=== PATIENT | male | born 1945 | race Caucasian/White ===

== ENCOUNTER 2016-07-04 17:12 | Inpatient (IN) | payer MEDICARE, OTHER ==
--- NOTE | ~2016-07-04 | EGD ---
EGD REPORT [facility] [address] [place]. [address] NAME: HELEN MORATAYA : [birth year] STATUS : ADM IN PAT#: [id number] AGE: 70 ADM/REG DATE : 07/04/16 MR#: [id number] REPORT SERV DATE: 07/06/16 DICTATED BY: CHRIS BARAJAS DATE: 07/06/16 REPORT STATUS : Draft [facility]ANSCRIBED BY: [facility] DATE: 07/06/16 Endoscopy Center Patient Name: Helen Morataya Date of : 1945 Attending MD: CHRIS BARAJAS MD Procedure Date No Time: 07/06/2016 Procedure: Colonoscopy Indications: Gastrointestinal bleeding Referring MD: KELVIN NEVILLE Medicines: Monitored Anesthesia Care Complications: No immediate complications. Estimated blood loss: Minimal. Procedure: After I obtained informed consent, the scope was passed under direct vision. Throughout the procedure, the patient's blood pressure, pulse, and oxygen saturations were monitored continuously. The CF [id number] was introduced through the anus and advanced to the cecum, identified by appendiceal orifice and ileocecal valve. The colonoscopy was performed without difficulty. The patient tolerated the procedure well. The quality of the bowel preparation was good in most of the colon, but was only fair in the cecum and ascending colon and not adequate for screening purposes. Findings: The perianal and digital rectal examinations were normal. Pertinent negatives include normal sphincter tone and no palpable rectal lesions. A sessile polyp was found in the ascending colon. The polyp was 4 mm in size. The polyp was removed with a cold biopsy forceps. Resection and retrieval were complete. Estimated blood loss was minimal. A sessile polyp was found in the sigmoid colon. The polyp was 3 mm in size. The polyp was removed with a cold biopsy forceps. Resection and retrieval were complete. Estimated blood loss was minimal. Non-bleeding internal hemorrhoids were found during retroflexion and were medium-sized. There is no endoscopic evidence of bleeding in the entire colon. The exam was otherwise without abnormality. Impression: - One 4 mm polyp in the ascending colon. Resected and retrieved. - One 3 mm polyp in the sigmoid colon. Resected and retrieved. - Non-bleeding internal hemorrhoids. - The examination was otherwise normal. EGD REPORT [address] [address] NAME: HELEN MORATAYA : [birth year] STATUS : ADM IN [facility]#: [id number] AGE: 70 ADM/REG DATE : 07/04/16 MR#: [id number] REPORT SERV DATE: 07/06/16 DICTATED BY: CHRIS BARAJAS DATE: 07/06/16 REPORT STATUS : Draft TRANSCRIBED BY: [employer] DATE: 07/06/16 Recommendation: - Return patient to hospital bender for ongoing care. - Await pathology results. - Repeat colonoscopy in 6-12 months because polyps were seen on examination and prep was inadequate for screening purposes. Procedure Code(s): --- Professional --- 06127, Colonoscopy, flexible, proximal to splenic flexure; with biopsy, single or multiple Diagnosis Code(s): --- Professional --- D12.5, Benign neoplasm of sigmoid colon D12.2, Benign neoplasm of ascending colon K64.8, Other hemorrhoids K92.2, Gastrointestinal hemorrhage, unspecified CPT copyright 2013 [employer]. All rights reserved. The codes documented in this report are preliminary and upon pre coder review may be revised to meet current compliance requirements. Chris Barajas MD CHRIS BARAJAS MD 07/06/2016 10:46 AM This report has been signed electronically. Number of Addenda: 0 Note Initiated On: 07/06/2016 9:39 AM Scope Withdrawal Time 0 hours 18 minutes 25 seconds [address] [place] [address]
--- NOTE | ~2016-07-04 | DS ---
Discharge Summary [facility] [address] [facility] [place]. [address] NAME: HELEN CUMMINS : [birth year] STATUS : DIS IN PAT#: [id number] AGE: 70 ADM/REG DATE : 07/04/16 MR#: [id number] REPORT SERV DATE: 07/07/16 DICTATED BY: YAYA CASANOVA DATE: 07/06/16 REPORT STATUS : Draft TRANSCRIBED BY: MODL DATE: 07/06/16 ADMISSION DATE: 07/04/2016 DISCHARGE DATE: 07/06/2016 DISCHARGE DIAGNOSES: 1. Acute upper gastrointestinal bleed, status post esophagogastroduodenoscopy and colonoscopy. 2. Coagulopathy secondary to Coumadin use. 3. Acute blood loss anemia. 4. Chronic persistent atrial fibrillation. 5. Chronic kidney disease, stage III. CONSULT: GI. PROCEDURES: EGD and colonoscopy performed by Dr. Erazo on 07/06/2016 revealed no acute source of bleeding. The patient had Perez's esophagus as well as mild duodenitis. HOSPITAL COURSE: This is a 70-year-old gentleman who was admitted to the hospital with acute upper GI bleed in the setting of anticoagulation with Coumadin. For details please refer to H and P by Dr. Ferrer. In summary, the patient was admitted and was given FFP to reverse the coagulopathy as well as 2 packs of packed red blood cells as the patient was quite symptomatic. The patient was also given IV fluid resuscitation along with a Protonix drip. The patient's hemoglobin on presentation was 6.1 and after 2 units patient's hemoglobin improved to 7.8, and on the day of discharge, the patient's hemoglobin is up to 8.4. The patient has also symptomatically improved and felt back at baseline. The patient had an EGD and colonoscopy done which was quite benign with only findings of Perez's esophagus and mild duodenitis without any active source of bleeding. The patient was actually cleared by GI to resume Coumadin. The patient is now being discharged home with close outpatient followup instructions. DISPOSITION: Home. DISCHARGE MEDICATIONS: Protonix 40 mg p.o. daily. FOLLOWUP: 1. Please follow up with PCP in the next one to two weeks. 2. Please follow up with Dr. Chavez, his room maid in the next two weeks. A total of 25 minutes spent in coordinating this patient's discharge today. [facility]/SONDRA aYya Casanova MD Discharge Summary [facility] [address] [place] [address] NAME: HELEN CUMMINS : [birth year] STATUS : DIS IN PAT#: [id number] AGE: 70 ADM/REG DATE : 07/04/16 MR#: [id number] REPORT SERV DATE: 07/07/16 DICTATED BY: YAYA CASANOVA DATE: 07/06/16 REPORT STATUS : Draft TRANSCRIBED BY: SONDRA DATE: 07/06/16 / [id number] CC: MD Terrance Williamson M.D.
--- NOTE | ~2016-07-04 | EGD ---
EGD REPORT [facility] [address] [address] NAME: HELEN MORATAYA : [birth year] STATUS : ADM IN PAT#: [id number] AGE: 70 ADM/REG DATE : 07/04/16 MR#: [id number] REPORT SERV DATE: 07/06/16 DICTATED BY: CHRIS BARAJAS DATE: 07/06/16 REPORT STATUS : Draft [facility]ANSCRIBED BY: [facility] DATE: 07/06/16 Endoscopy Center Patient Name: Helen Morataya Date of : 1945 Attending MD: CHRIS BARAJAS MD Procedure Date No Time: 07/06/2016 Procedure: Upper GI endoscopy Indications: Melena, Suspected upper gastrointestinal bleeding Referring MD: KELVIN NEVILLE Medicines: Monitored Anesthesia Care Complications: No immediate complications. Estimated blood loss: Minimal. Procedure: After obtaining informed consent, the endoscope was passed under direct vision. Throughout the procedure, the patient's blood pressure, pulse, and oxygen saturations were monitored continuously. The GIF [id number] was introduced through the mouth, and advanced to the second part of duodenum. The upper GI endoscopy was accomplished without difficulty. The patient tolerated the procedure well. Findings: Two tongues of salmon-colored mucosa were present at 39 cm. No other visible abnormalities were present. The maximum longitudinal extent of these esophageal mucosal changes was 1 cm in length. Biopsies were taken with a cold forceps for histology. Estimated blood loss was minimal. A small hiatus hernia was present. Patchy mild inflammation characterized by congestion (edema) and erythema was found in the duodenal bulb. The exam was otherwise without abnormality. Impression: - Hampton-colored mucosa suspicious for short-segment Perez's esophagus. Biopsied. - Hiatus hernia. - Duodenitis. - The examination was otherwise normal. No souce of bleeding seen. Recommendation: - Use Protonix (pantoprazole) 40 mg PO daily. - Perform a colonoscopy today. Procedure Code(s): --- Professional --- 88817, Esophagogastroduodenoscopy, flexible, transoral; with biopsy, single or multiple EGD REPORT [facility] [address] [facility] [place]. [address] NAME: HELEN MORATAYA : [birth year] STATUS : ADM IN [facility]#: [id number] AGE: 70 ADM/REG DATE : 07/04/16 MR#: [id number] REPORT SERV DATE: 07/06/16 DICTATED BY: CHRIS BARAJAS DATE: 07/06/16 REPORT STATUS : Draft TRANSCRIBED BY: [employer] DATE: 07/06/16 Diagnosis Code(s): --- Professional --- K22.9, Disease of esophagus, unspecified K44.9, Diaphragmatic hernia without obstruction or gangrene K29.80, Duodenitis without bleeding K92.1, Melena CPT copyright 2013 [employer]. All rights reserved. The codes documented in this report are preliminary and upon chlorinator operator review may be revised to meet current compliance requirements. Chris Barajas MD CHRIS BARAJAS MD 07/06/2016 10:02 AM This report has been signed electronically. Number of Addenda: 0 Note Initiated On: 07/06/2016 9:40 AM Scope Withdrawal Time 0 hours 0 minutes 0 seconds [address] [facility] [place] [address]
--- NOTE | ~2016-07-04 | HP ---
History And Physical [place] [id number] [place]. [address] NAME: HELEN CUMMINS : [birth year] STATUS : ADM IN [facility]#: [id number] AGE: 70 ADM/REG DATE : 07/04/16 MR#: [id number] REPORT SERV DATE: 07/05/16 DICTATED BY: SOLE LOVETT DATE: 07/04/16 REPORT STATUS : Draft TRANSCRIBED BY: MODMindy DATE: 07/04/16 DATE OF ADMISSION: 07/04/2016 CHIEF COMPLAINT: A 70-year-old male, presenting with melena and acute blood loss anemia. HISTORY OF PRESENTING ILLNESS: The patient's history was obtained through careful interview with the patient, , and son, coupled with [facility] and [facility] medical records. The patient earlier in 2016 was diagnosed with new onset atrial fibrillation. He was being evaluated for initiation of Coumadin and for risk of stroke and was found to have significant carotid disease as well and in April, had to undergo a left carotid endarterectomy. Also this year, the patient has been started on new prescription of Coumadin and for a period of time was on amiodarone as well and also had to have cardioversion of symptomatic atrial fibrillation in May 2016. It is in the context of all these vascular and cardiac issues that the patient has began to feel increasingly ill over these last several months. At one point, (after he had started amiodarone), he states his blood pressure was "bottoming out" with systolic blood pressures in the 90s and diastolic blood pressures in the 50s. He stopped his amiodarone with some improvement in his symptoms, but then over this last month, has continued to have lightheadedness and severe fatigue with loss of energy. Over the last few weeks then, he has also developed extreme dyspnea on exertion, occasional dizziness, and lightheadedness again with orthostatics symptoms. Over the last two weeks, he has noticed tar black discoloration of the stool. No bright red blood per rectum. No nausea or vomiting. Although sometimes he feels queasy with exertion. No reflux symptoms. About five or six days ago, he went in for routine INR check. He also had blood checked at that time, although he had an INR of 2.6 and a low hemoglobin, but for various reasons, the blood result was not communicated to his primary care physician until his day of admission and because of the low hemoglobin, the patient was instructed to come to the emergency department. He does not use any nonsteroidal antiinflammatory drugs. He is on an aspirin in addition to his Coumadin. There has been no chest pain. He has had occasional cramping discomfort in his thighs, exacerbated by activity. Few weeks ago, he stopped taking his chronic Zocor for this and he has had some improvement in it and this pain, he describes as a 6/10 severity. He also complained of feeling palpitations and increased heart rate with activity. REVIEW OF SYSTEMS: History And Physical [address] [address] NAME: HELEN CUMMINS : [birth year] STATUS : ADM IN [facility]#: [id number] AGE: 70 ADM/REG DATE : 07/04/16 MR#: [id number] REPORT SERV DATE: 07/05/16 DICTATED BY: SOLE LOVETT DATE: 07/04/16 REPORT STATUS : Draft TRANSCRIBED BY: SONDRA DATE: 07/04/16 Otherwise, a 14-point review of systems was obtained and was negative. PAST MEDICAL HISTORY: 1. Atrial fibrillation, just diagnosed earlier in 2016, on Coumadin. 2. Colon polyps, seen by Dr. Ulises Chavez. 3. Chronic kidney disease, stage III with a baseline creatinine of about 1.3 to 1.5. 4. Nephrolithiasis. 5. Coronary artery disease status post CABG, 2006. 6. Gout. 7. No lung disease history. PAST SURGICAL HISTORY: 1. CABG, 2006. 2. Left carotid endarterectomy, April 2016. 3. Knee surgery. 4. Prostate biopsy. 5. Right eye melanoma, 1998. ALLERGIES: NO KNOWN DRUG ALLERGIES. SOCIAL HISTORY: He is , has two sons, a daughter, five grandchildren. He has never been a smoker. Does not drink any alcohol. 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 FAMILY HISTORY: He is only child. He knows his mother at 52 years of age, but of unknown cause. His father also at a relatively young age of unknown cause and he cannot identify any clear familial pattern of disease. CURRENT MEDICATIONS: Include allopurinol 300 mg daily, aspirin 81 mg daily, atenolol 50 mg daily, Lasix 20 mg daily, Restoril 15 mg at bedtime, Coumadin alternating doses of 5 and 7.5 mg every other day. PHYSICAL EXAMINATION: VITAL SIGNS: Temperature 96.6, pulse 93, blood pressure 135/73, respiratory rate 14, O2 saturation 98% on room air. GENERAL: A very pleasant cooperative male. There is no evidence of acute distress at this time. HEENT: Pupils equal, round, and reactive to light. The patient does have conjunctival pallor, but no scleral icterus. Nares are patent. Oropharynx is clear of obstruction. Moist mucous membranes. No intraoral lesions. NECK: Trachea midline. No thyromegaly. LYMPH: No cervical lymphadenopathy. No supraclavicular lymphadenopathy. RESPIRATORY: Clear to auscultation at bases. No wheezes, rales, or rhonchi. Normal respiratory effort. CARDIOVASCULAR: Irregularly irregular. No murmurs, rubs, or gallops. No extremity edema is appreciated. History And Physical [address] [address] NAME: HELEN CUMMINS : [birth year] STATUS : ADM IN [facility]#: [id number] AGE: 70 ADM/REG DATE : 07/04/16 MR#: [id number] REPORT SERV DATE: 07/05/16 DICTATED BY: SOLE LOVETT DATE: 07/04/16 REPORT STATUS : Draft TRANSCRIBED BY: SONDRA DATE: 07/04/16 ABDOMEN: Completely soft, nontender, nondistended. No hepatosplenomegaly. DERMATOLOGICAL: Warm and dry extremities. Peripheral pallor is noted, but no cyanosis. PSYCHIATRIC: Normal affect. Good mood. Alert and oriented x3. LABORATORY DATA: INR 2.5. Troponin negative. Liver enzymes within normal limits. White blood cell count 9.2, hemoglobin 6.1, hematocrit 20.3, platelets 484. Sodium 139, potassium 4.2, chloride 102, bicarbonate 27, BUN 23, creatinine 1.4, glucose 107. STUDIES: EKG by my own evaluation shows atrial fibrillation. ASSESSMENT AND PLAN: 1. Upper gastrointestinal bleed. Place on IV proton pump inhibitor drip. Consult Dr. Ulises Chavez, hvac design mechanical engineer for anticipated upper endoscopy. 2. Coagulopathy secondary to Coumadin use. Place on IV FFP. Begin with 1 unit transfused to an initial goal of about 1.7 to 1.8 INR, at least for the procedure, but consider holding Coumadin for an extended period of time depending on the findings on endoscopy? 3. Acute blood loss anemia. Transfuse blood as the patient is quite symptomatic. 4. Chronic persistent atrial fibrillation. Holding Coumadin secondary to bleeding. Check telemetry. The patient is currently rate controlled. 5. Chronic kidney disease, stage III. KPL/MODL Sole Lovett M.D. / [id number] CC: MD Terrance Williamson M.D. Vijaykurmar Patel, M.D. David Wendt, M.D. Lisa Gail Carkner, M.D.
--- NOTE | ~2016-07-04 | CN ---
Consultation Report [facility] [address] [place]. [address] NAME: HELEN MORATAYA : 43 STATUS : ADM IN PAT#: [id number] AGE: 70 ADM/REG DATE : 07/04/16 MR#: [id number] REPORT SERV DATE: 07/05/16 DICTATED BY: KARL CHAVEZ DATE: 07/04/16 REPORT STATUS : Draft TRANSCRIBED BY: SONDRA DATE: 07/04/16 GI CONSULTATION. DATE OF CONSULTATION: 07/04/2016 REASON FOR CONSULTATION: Melena and severe anemia. HISTORY OF PRESENT ILLNESS: Mr. Morataya is a 70-year-old gentleman, whom I have known from previous colonoscopies in the past, who presented to the emergency room today after he received a call from his PCP, Dr. Cano, informed him to go to the ER because of blood tests done in his office yesterday revealed a low hemoglobin of around 6.3. When he came into the hospital, his hemoglobin and hematocrit were 6.1 and 20.3. He had a low MCV of 79.9, platelets were 484,000 and his INR was 2.5 on Coumadin. The patient says a couple of weeks ago he started noticing some black tarry stool. He describes it as tarry to jet black, and a few days back it returned back to normal. Once his hemoglobin was found to be low he has been advised to stop his Coumadin and baby aspirin. The patient denies any chest pain; he did have weakness and dizziness. No abdominal pain, nausea, or vomiting. PAST MEDICAL HISTORY: 1. History of atrial fibrillation for which he had a cardioversion on 05/29/2016 and had a carotid endarterectomy on 05/04/2016. The patient's last colonoscopy was on 11/12/2011 and it was a tortuous and a difficult examination. Medical history of atrial fibrillation. 1. Chronic kidney disease. 2. Carotid end arterectomy. HOME MEDICATIONS: Include an aspirin, and Coumadin, and he was on amiodarone which has been discontinued. HABITS: Does not smoke or drink. FAMILY HISTORY: Noncontributory from a GI standpoint. PHYSICAL EXAMINATION: GENERAL: He is a fully alert and oriented gentleman who seems to be in no acute distress at this point. VITAL SIGNS: His vital signs are stable. He is afebrile. LUNGS: Normal. CVS: Normal. ABDOMEN: Benign. Consultation Report [place] [address] [place]. [address] NAME: HELEN MORATAYA : [birth year] STATUS : ADM IN PAT#: [id number] AGE: 70 ADM/REG DATE : 07/04/16 MR#: [id number] REPORT SERV DATE: 07/05/16 DICTATED BY: KARL CHAVEZ DATE: 07/04/16 REPORT STATUS : Draft TRANSCRIBED BY: MODL DATE: 07/04/16 IMPRESSION: 1. Microcytic anemia. 2. History of melena. RECOMMENDATIONS: The patient is going to get 2 units of packed cells and FFP also. Depending upon what his H and H and INR show we will proceed with an EGD tomorrow or on Wednesday. FINANCIAL REPORTING SPECIALIST/SONDRA Sidra Chavez M.D. / [id number] CC: MD Terrance Williamson M.D. David Wendt, M.D.
[~2016-07-04 17:12] MED LIST: ASAB PO; ATEN50 PO; CORDARONE PO; JANTOVEN1 MG PO; JANTOVEN7.5 MG PO; L20 PO; NORCO1 TA1 PO; PRIN10 PO; PRIN20 PO; Z300 PO; ZOCOR40 PO
[2016-07-04 17:56] LABS: BASOPHILS 0.7 %; BASOPHILS ABSOLUTE 0.06 10/3/uL (0.0-0.16); EOSINOPHILS 1.2 %; EOSINOPHILS ABSOLUTE 0.11 10/3/uL (0.0-0.53); ER CBC TAT 0 Hrs 10 Mins; IMMATURE GRANULOCYTES 0.1 %; IMMATURE GRANULOCYTES ABSOLUTE 0.01 10/3/uL (0.0-0.11); LYMPHOCYTES 14.9 %; LYMPHOCYTES ABSOLUTE 1.37 10/3/uL (0.67-4.30); MEAN PLATELET VOLUME 8.5 fL (9.2-13.0); MONOCYTES 10.3 %; MONOCYTES ABSOLUTE 0.94 10/3/uL (0.21-1.20); NEUTROPHILS 72.8 %; NEUTROPHILS ABSOLUTE 6.68 10/3/uL (2.02-8.40); WHITE BLOOD CELLS 9.2 10/3/uL (4.5-10.5)
[2016-07-04] MEDS ORDERED: ATEN50 PO (17:57)
[2016-07-04] MEDS ORDERED: REST15 PO (17:57)
[2016-07-04] MEDS ORDERED: L20 PO (17:57)
[2016-07-04] MEDS ORDERED: JANTOVEN5 MG PO (17:58)
[2016-07-04] MEDS ORDERED: JANTOVEN7.5 MG PO (17:59)
[2016-07-04] MEDS ORDERED: Z300 PO (18:00)
[2016-07-04] MEDS ORDERED: ASAB PO (18:00)
[2016-07-04 18:01] LABS: HEMATOCRIT 20.3 % (40.0-51.0); HEMOGLOBIN 6.1 g/dL (13.6-17.8); RED CELL COUNT 2.54 10/6/uL (4.7-6.1)
[2016-07-04 18:02] LABS: MEAN CORPUSCULAR VOLUME 79.9 fL (80-100); PLATELET COUNT 484 10/3/uL (150-400); RBC DISTRIBUTION WIDTH 18.4 % (12.0-16.0)
[2016-07-04 18:03] LABS: MANUAL DIFF NO %
[2016-07-04 18:05] LABS: ALBUMIN 3.2 G/DL (3.5-5.0); DIRECT BILIRUBIN 0.1 MG/DL (0.0-0.4); INDIRECT BILIRUBIN(NOT ORDER) 0.4 MG/DL (0.1-0.9); TOTAL BILIRUBIN 0.5 MG/DL (0-1.2); TOTAL PROTEIN 6.9 G/DL (6.0-8.5)
[2016-07-04 18:06] LABS: BUN (BLOOD UREA NITROGEN) 23 MG/DL (6-23); CALCIUM, SERUM 8.2 MG/DL (8.5-10.4); CHEST PAIN PROFILE TAT 0 Hrs 20 Mins; CHLORIDE, SERUM 102 MMOL/L (96-112); CO2 (CARBON DIOXIDE) 27 MMOL/L (24-34); GFR AFRICAN AMERICAN 58 ML/MIN (>=60); GFR NON AFRICAN AMERICAN 50 ML/MIN (>=60); GLUCOSE, SERUM 107 MG/DL (60-99); POTASSIUM, SERUM 4.2 MMOL/L (3.5-5.3); SODIUM, SERUM 139 MMOL/L (135-148); TROPONIN I <0.02 NG/ML (<0.05)
[2016-07-04 18:10] LABS: INTERNATIONAL NORMAL RATI 2.5 UNITS (-); PARTIAL THROMBO TIME 33.1 SEC (22.5-37.2); PROTIME (NOT ORD) 26.8 SEC (12.0-14.5)
[2016-07-05 03:04] LABS: BASOPHILS 0.8 %; BASOPHILS ABSOLUTE 0.07 10/3/uL (0.0-0.16); EOSINOPHILS 1.6 %; EOSINOPHILS ABSOLUTE 0.14 10/3/uL (0.0-0.53); IMMATURE GRANULOCYTES 0.1 %; IMMATURE GRANULOCYTES ABSOLUTE 0.01 10/3/uL (0.0-0.11); LYMPHOCYTES 15.7 %; LYMPHOCYTES ABSOLUTE 1.36 10/3/uL (0.67-4.30); MEAN CORPUSCULAR HEMOGLOB 25.5 pg (26.0-34.0); MEAN CORPUSCULAR VOLUME 80.4 fL (80-100); MEAN PLATELET VOLUME 8.4 fL (9.2-13.0); MONOCYTES 12.6 %; MONOCYTES ABSOLUTE 1.09 10/3/uL (0.21-1.20); NEUTROPHILS 69.2 %; NEUTROPHILS ABSOLUTE 6.01 10/3/uL (2.02-8.40); NUCLEATED RED BLOOD CELLS 0.6 /100WBC (0-0); PLATELET COUNT 413 10/3/uL (150-400); RBC DISTRIBUTION WIDTH 18.1 % (12.0-16.0); WHITE BLOOD CELLS 8.7 10/3/uL (4.5-10.5)
[2016-07-05 03:06] LABS: HEMATOCRIT 24.6 % (40.0-51.0); HEMOGLOBIN 7.8 g/dL (13.6-17.8); MANUAL DIFF NO %; MEAN CORPUS HGB CONC 31.7 g/dL (32.0-36.0); RED CELL COUNT 3.06 10/6/uL (4.7-6.1)
[2016-07-05 03:07] LABS: INTERNATIONAL NORMAL RATI 2.3 UNITS (-); PARTIAL THROMBO TIME 32.7 SEC (22.5-37.2); PROTIME (NOT ORD) 24.8 SEC (12.0-14.5)
[2016-07-05 03:21] LABS: A/G RATIO 0.9 (0.7-1.9); ALBUMIN 3.3 G/DL (3.5-5.0); ALKALINE PHOSPHATASE 99 U/L (45-117); BUN (BLOOD UREA NITROGEN) 20 MG/DL (6-23); CALCIUM, SERUM 8.5 MG/DL (8.5-10.4); CHLORIDE, SERUM 103 MMOL/L (96-112); CO2 (CARBON DIOXIDE) 27 MMOL/L (24-34); CREATININE 1.38 MG/DL (0.70-1.30); GFR AFRICAN AMERICAN 59 ML/MIN (>=60); GFR NON AFRICAN AMERICAN 51 ML/MIN (>=60); GLOBULIN 3.8 G/DL (2.5-4.1); GLUCOSE, SERUM 98 MG/DL (60-99); POTASSIUM, SERUM 3.8 MMOL/L (3.5-5.3); SGOT(AST) 24 U/L (5-40); SGPT(ALT) 40 U/L (5-65); SODIUM, SERUM 141 MMOL/L (135-148); TOTAL BILIRUBIN 0.4 MG/DL (0-1.2); TOTAL PROTEIN 7.1 G/DL (6.0-8.5); TROPONIN I 0.02 NG/ML (<0.05)
[2016-07-05 07:18] LABS: HEMATOCRIT 24.7 % (40.0-51.0); HEMOGLOBIN 7.6 g/dL (13.6-17.8)
[2016-07-06 00:48] LABS: HEMOGLOBIN 8.3 g/dL (13.6-17.8)
[2016-07-06 06:22] LABS: INTERNATIONAL NORMAL RATI 1.7 UNITS (-)
[2016-07-06 06:25] LABS: PROTIME (NOT ORD) 19.6 SEC (12.0-14.5)
[2016-07-06 06:29] LABS: BASOPHILS 0.6 %; BASOPHILS ABSOLUTE 0.04 10/3/uL (0.0-0.16); EOSINOPHILS 2.7 %; EOSINOPHILS ABSOLUTE 0.19 10/3/uL (0.0-0.53); HEMATOCRIT 26.8 % (40.0-51.0); HEMOGLOBIN 8.4 g/dL (13.6-17.8); IMMATURE GRANULOCYTES 0.1 %; IMMATURE GRANULOCYTES ABSOLUTE 0.01 10/3/uL (0.0-0.11); LYMPHOCYTES ABSOLUTE 1.41 10/3/uL (0.67-4.30); MEAN CORPUS HGB CONC 31.3 g/dL (32.0-36.0); MEAN CORPUSCULAR HEMOGLOB 25.3 pg (26.0-34.0); MEAN CORPUSCULAR VOLUME 80.7 fL (80-100); MEAN PLATELET VOLUME 8.6 fL (9.2-13.0); MONOCYTES ABSOLUTE 0.85 10/3/uL (0.21-1.20); NEUTROPHILS 64.6 %; NEUTROPHILS ABSOLUTE 4.56 10/3/uL (2.02-8.40); PLATELET COUNT 375 10/3/uL (150-400); RBC DISTRIBUTION WIDTH 18.7 % (12.0-16.0); RED CELL COUNT 3.32 10/6/uL (4.7-6.1); WHITE BLOOD CELLS 7.1 10/3/uL (4.5-10.5)
[2016-07-06 06:30] LABS: MANUAL DIFF NO %
[2016-07-06 06:56] LABS: BUN (BLOOD UREA NITROGEN) 18 MG/DL (6-23); CHLORIDE, SERUM 102 MMOL/L (96-112); CO2 (CARBON DIOXIDE) 27 MMOL/L (24-34); GFR AFRICAN AMERICAN 64 ML/MIN (>=60); GFR NON AFRICAN AMERICAN 55 ML/MIN (>=60); GLUCOSE, SERUM 94 MG/DL (60-99); POTASSIUM, SERUM 3.8 MMOL/L (3.5-5.3); SODIUM, SERUM 140 MMOL/L (135-148)
[2016-07-06] MEDS ORDERED: PROTONIX PO (14:15)
== END 2016-07-06 15:05 | disposition home or self-care (01) | DRG 378 ==
LOC: ER 17:12 → 6NO 19:00
PROVIDERS: Emergency Medicine; Hospitalist; Internal Medicine; Internal Medicine Gastroenterology
PROC: 30233K1 Transfusion of Nonautologous Frozen Plasma into Peripheral Vein, Percutaneous Approach (ICD-10-PCS; 2016-07-05)
PROC: 30233N1 Transfusion of Nonautologous Red Blood Cells into Peripheral Vein, Percutaneous Approach (ICD-10-PCS; 2016-07-05)
PROC: 0DB58ZX Excision of Esophagus, Via Natural or Artificial Opening Endoscopic, Diagnostic (ICD-10-PCS; 2016-07-06)
PROC: 0DBK8ZX Excision of Ascending Colon, Via Natural or Artificial Opening Endoscopic, Diagnostic (ICD-10-PCS; principal; 2016-07-06 09:50)
PROC: 0DBN8ZX Excision of Sigmoid Colon, Via Natural or Artificial Opening Endoscopic, Diagnostic (ICD-10-PCS; 2016-07-06 09:50)
DX: K92.1 Melena (principal); D62 Acute posthemorrhagic anemia; D68.32 Hemorrhagic disorder due to extrinsic circulating anticoagulants; I48.1 Persistent atrial fibrillation; T45.515A Adverse effect of anticoagulants, initial encounter; D12.5 Benign neoplasm of sigmoid colon; D12.2 Benign neoplasm of ascending colon; K64.8 Other hemorrhoids; K22.70 Barrett's esophagus without dysplasia; K29.80 Duodenitis without bleeding; I12.9 Hypertensive chronic kidney disease with stage 1 through stage 4 chronic kidney disease, or unspecified chronic kidney disease; I48.0 Paroxysmal atrial fibrillation; K22.9 Disease of esophagus, unspecified; K44.9 Diaphragmatic hernia without obstruction or gangrene; I25.10 Atherosclerotic heart disease of native coronary artery without angina pectoris; N18.9 Chronic kidney disease, unspecified; Z79.82 Long term (current) use of aspirin; Z79.01 Long term (current) use of anticoagulants
CPT/HCPCS: 36415; 36430; 80048; 80053; 80076; 83735; 84443; 84484; 85014; 85018; 85025; 85610; 85730; 86850; 86900; 86901; 86920; 88305; 93005; 99285; A9270-GY; C9113; J1940; P9016; P9059

== ENCOUNTER 2016-09-04 19:46 | Emergency (ER) | payer MEDICARE, OTHER ==
[2016-09-04 19:22] LABS: BASOPHILS 0.6 %; BASOPHILS ABSOLUTE 0.05 10/3/uL (0.0-0.16); EOSINOPHILS ABSOLUTE 0.17 10/3/uL (0.0-0.53); HEMATOCRIT 28.7 % (40.0-51.0); HEMOGLOBIN 8.7 g/dL (13.6-17.8); IMMATURE GRANULOCYTES 0.1 %; IMMATURE GRANULOCYTES ABSOLUTE 0.01 10/3/uL (0.0-0.11); LYMPHOCYTES ABSOLUTE 1.37 10/3/uL (0.67-4.30); MEAN CORPUS HGB CONC 30.3 g/dL (32.0-36.0); MEAN CORPUSCULAR HEMOGLOB 23.7 pg (26.0-34.0); MEAN PLATELET VOLUME 9.8 fL (9.2-13.0); MONOCYTES 11.2 %; MONOCYTES ABSOLUTE 0.96 10/3/uL (0.21-1.20); NEUTROPHILS 70.1 %; NEUTROPHILS ABSOLUTE 5.99 10/3/uL (2.02-8.40); PLATELET COUNT 383 10/3/uL (150-400); RBC DISTRIBUTION WIDTH 22.1 % (12.0-16.0); RED CELL COUNT 3.67 10/6/uL (4.7-6.1); WHITE BLOOD CELLS 8.6 10/3/uL (4.5-10.5)
[2016-09-04 19:23] LABS: MANUAL DIFF NO %; MEAN CORPUSCULAR VOLUME 78.2 fL (80-100)
[2016-09-04 19:30] LABS: PROTIME (NOT ORD) 22.6 SEC (12.0-14.5)
[2016-09-04 19:40] LABS: A/G RATIO 0.8 (0.7-1.9); ALBUMIN 3.5 G/DL (3.5-5.0); ALKALINE PHOSPHATASE 101 U/L (45-117); BUN (BLOOD UREA NITROGEN) 24 MG/DL (6-23); CHLORIDE, SERUM 107 MMOL/L (96-112); CO2 (CARBON DIOXIDE) 27 MMOL/L (24-34); CREATININE 1.26 MG/DL (0.70-1.30); GFR AFRICAN AMERICAN 66 ML/MIN (>=60); GFR NON AFRICAN AMERICAN 57 ML/MIN (>=60); GLOBULIN 4.3 G/DL (2.5-4.1); GLUCOSE, SERUM 96 MG/DL (60-99); SGOT(AST) 12 U/L (5-40); SGPT(ALT) 20 U/L (5-65); SODIUM, SERUM 140 MMOL/L (135-148); TOTAL BILIRUBIN 0.3 MG/DL (0-1.2); TOTAL PROTEIN 7.8 G/DL (6.0-8.5); TROPONIN I <0.02 NG/ML (<0.05)
[~2016-09-04 19:46] MED LIST changes: +JANTOVEN5 MG PO; +PROTONIX PO; +REST15 PO
== END 2016-09-04 21:54 | disposition home or self-care (01) ==
LOC: ER 19:46
PROVIDERS: Emergency Medicine
DX: D64.9 Anemia, unspecified (principal); I12.9 Hypertensive chronic kidney disease with stage 1 through stage 4 chronic kidney disease, or unspecified chronic kidney disease; N18.9 Chronic kidney disease, unspecified; I48.91 Unspecified atrial fibrillation; E78.5 Hyperlipidemia, unspecified; I25.10 Atherosclerotic heart disease of native coronary artery without angina pectoris; Z95.1 Presence of aortocoronary bypass graft; Z85.820 Personal history of malignant melanoma of skin; Z88.8 Allergy status to other drugs, medicaments and biological substances; Z79.01 Long term (current) use of anticoagulants; Z79.82 Long term (current) use of aspirin; Z79.899 Other long term (current) drug therapy
CPT/HCPCS: 36415; 71010; 80053; 84484; 85025; 85610; 86850; 86900; 86901; 93005; 99285